=== PATIENT | female | born 1945 | race Two or more races ===

== ENCOUNTER 2019-06-14 09:59 | Emergency (ER) | payer MEDICARE, MEDICAID ==
[~2019-06-14] VITALS: Ht 162.6 cm; Wt 72.6 kg
[2019-06-14 10:44] VITALS: BP 156/95
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
[2019-06-14] MEDS ORDERED: SILV20CR14 TP (11:04)
[2019-06-14] MEDS: silver sulfADIAZINE 1% CREAM 25GM TUBE. TP STA (11:05)
== END 2019-06-14 11:25 | disposition home or self-care (01) ==
LOC: ER 09:59
DX: T23.242A Burn of second degree of multiple left fingers (nail), including thumb, initial encounter (principal); T31.0 Burns involving less than 10% of body surface; X19.XXXA Contact with other heat and hot substances, initial encounter; Y93.G3 Activity, cooking and baking; Y92.89 Other specified places as the place of occurrence of the external cause; Y99.8 Other external cause status
CPT/HCPCS: 16000; 99284